=== PATIENT | male | born 1940 | race Caucasian/White ===

== ENCOUNTER 2021-12-18 06:19 | Day surgery (SDC) | payer OTHER ==
[~2021-12-18] VITALS: Ht 162.6 cm; Wt 72.7 kg
[~2021-12-18 06:19] MED LIST: ASPI81EC; CARV25; CARV6.25 PO; CEFP200 PO; CLIN300 PO; CLOP75; CLOP75 PO; CRUTCH3 USE; DIGO.25 PO; DUTA.5 PO; ENTRESTO 24 MG1 EAC3 PO; EZET10 PO; EZETIMIBE10 M6 PO; FINA5 PO; FURO100EL PO; FURO40 PO; HYDACE25S PR; HYDACE5 PO; IPRATROPIUM BRO30 ML; JANTOVEN5 M2 PO; LISI20 PO; Lisinopril2.5 MG PO; Nitrostat0.3 MG SL; POTCHL20ER PO; PROCODE120 PO; RANO500T PO; RANOLAZINE ER500 M2 PO; RXPROCODSY PO; SIMV40 PO; SOTO80 PO; SPIR25 PO; Simvastatin40 MG PO; TAMS.4ER PO; TORSE20 PO; TRAM50 PO; VYTORIN; WARF4; WARF5 PO; [UNRECOGNIZED DRUG - REMARK]; [UNRECOGNIZED DRUG - REMARK]; [UNRECOGNIZED DRUG - REMARK]
--- NOTE | 2021-12-18 09:15 | NUR ---
[facility] returned to [facility]. awake and responds appropriately. dressing over left upper chest device site D&I. no hematoma, no bleeding.
--- NOTE | 2021-12-18 09:39 | NUR ---
PT GIVEN DIET PEPSI PER REQUEST. PT SITTING UP IN BED. PT A&Ox4. FAMILY AT BEDSIDE.
--- NOTE | 2021-12-18 10:15 | NUR ---
CLINDOMYCINE 600MG IVPB STARTED.
--- NOTE | 2021-12-18 11:00 | NUR ---
PATIENT VERBALIZED UNDERSTANDING OF DISCHARGE INSTRUCTIONS AND PRECAUTIONS. QUESTIONS ANSWERED. DEVICE SITE WITHOUT HEMATOMA OR BLEEDING DRESSING D&I. IV SITE DCED WITH CATHETER INTACT. TRANSFERRED TO CAR VIA WHEEL CHAIR BY DEMETRIO PRESSLEY.
== END 2021-12-18 14:12 | disposition home or self-care (01) ==
LOC: MHTC 06:19
DX: Z45.02 Encounter for adjustment and management of automatic implantable cardiac defibrillator (principal); I25.5 Ischemic cardiomyopathy; I48.20 Chronic atrial fibrillation, unspecified; I25.10 Atherosclerotic heart disease of native coronary artery without angina pectoris; E78.5 Hyperlipidemia, unspecified; I11.0 Hypertensive heart disease with heart failure; I50.9 Heart failure, unspecified; I25.2 Old myocardial infarction; E11.9 Type 2 diabetes mellitus without complications; Z79.01 Long term (current) use of anticoagulants; Z95.5 Presence of coronary angioplasty implant and graft; Z88.1 Allergy status to other antibiotic agents; Z88.0 Allergy status to penicillin
CPT/HCPCS: 33264; 99152; 99153; C1781; C1882; J0690; J1644; J2250; J2370; J3010; J3370; J7030; J7040

== ENCOUNTER 2022-12-30 13:21 | Day surgery (SDC) | payer OTHER ==
[~2022-12-30] VITALS: Ht 162.6 cm; Wt 72.3 kg
[2022-12-30 15:26] VITALS: BP 92/63
== END 2022-12-30 15:24 | disposition home or self-care (01) ==
LOC: ORSCSDS 13:21
PROVIDERS: Internal Medicine Gastroenterology
PROC: 0DJ08ZZ Inspection of Upper Intestinal Tract, Via Natural or Artificial Opening Endoscopic (ICD-10-PCS; principal; 2022-12-30 14:45)
DX: R13.10 Dysphagia, unspecified (principal); K22.70 Barrett's esophagus without dysplasia; I42.9 Cardiomyopathy, unspecified; K22.2 Esophageal obstruction; K22.89 Other specified disease of esophagus; E11.22 Type 2 diabetes mellitus with diabetic chronic kidney disease; I25.2 Old myocardial infarction; I12.9 Hypertensive chronic kidney disease with stage 1 through stage 4 chronic kidney disease, or unspecified chronic kidney disease; N18.30 Chronic kidney disease, stage 3 unspecified; E78.5 Hyperlipidemia, unspecified; I48.91 Unspecified atrial fibrillation; I25.10 Atherosclerotic heart disease of native coronary artery without angina pectoris; K21.9 Gastro-esophageal reflux disease without esophagitis; Z95.0 Presence of cardiac pacemaker; Z87.891 Personal history of nicotine dependence; Z79.01 Long term (current) use of anticoagulants; Z79.899 Other long term (current) drug therapy
CPT/HCPCS: 82947; 88305; J2001; J2704; J7120

== ENCOUNTER 2023-01-15 22:44 | Emergency (ER) | payer OTHER ==
[~2023-01-15] VITALS: Ht 175.3 cm; Wt 72.6 kg
[2023-01-15 23:05] LABS: Calcium, Ionized (POC) 1.09 mmol/L (1.10-1.46); Chloride (POC) 105 mmol/L (98-108); Glucose (ISTAT POC) 185 mg/dL (70-99); Hemoglobin (POC) 11.9 g/dL (13.5-17.5); Potassium (POC) 4.6 mmol/L (3.5-5.5); Sodium (POC) 141 mmol/L (135-148); Total CO2 (POC) 24 mmol/L (21-32)
[2023-01-15 23:07] LABS: Hematocrit 36.1 % (37.0-53.0); Hemoglobin 11.6 g/dL (13.5-17.5); Mean Corpuscular HGB Conc 32.1 g/dL (31.5-36.5); Mean Corpuscular Volume 103 fL (80-100); Mean Platelet Volume 9.7 fL (9.1-12.4); NRBC ABSOLUTE 0.02 K/mm3 (0.00-0.02); NRBC Auto 0.1 /100 WBC (0.0-0.2); Platelet Count 146 K/mm3 (150-400); RDW Coefficient Variation 12.8 % (11.7-14.2); RDW Standard Deviation 48.3 fL (35.1-46.3); Red Blood Cell Count 3.52 M/mm3 (4.30-5.90)
[2023-01-15 23:15] VITALS: BP 159/108
[2023-01-15 23:21] LABS: PCO2 Arterial 31.6 mmHg (35-45); PO2 Arterial 472 mmHg (80-100); pH Blood Arterial 7.58 (7.35-7.45)
[2023-01-15 23:24] LABS: Albumin, Blood 2.9 g/dL (3.4-5.0); Albumin/Globulin Ratio 1.2 (0.8-1.8); Bilirubin, Total 0.4 mg/dL (0.1-1.0); Bun/Creatinine Ratio 16.7 (12.0-20.0); Calcium, Blood 7.5 mg/dL (8.5-10.1); Creatinine, Blood 1.86 mg/dL (0.60-1.20); Globulin, Blood 2.5 g/dL (2.2-4.0); Potassium, Blood 4.7 mmol/L (3.5-5.5); Total Protein, Blood 5.4 g/dL (6.4-8.2)
[2023-01-15 23:31] LABS: BAND PERCENT MAN 18 % (0-8); BASOPHILS PERCENT MAN 0 % (0-2); EOSINOPHILS ABSOLUTE MAN 0.19 K/mm3 (0.00-0.68); EOSINOPHILS PERCENT MAN 1 % (0-6); LYMPHOCYTES ABSOLUTE MAN 3.78 K/mm3 (0.84-5.20); LYMPHOCYTES PERCENT MAN 19 % (21-46); METAMYELOCYTE ABSOLUTE MAN 0.39 K/mm3 (0.00-0.00); METAMYELOCYTE PERCENT MAN 2 % (0-0); MONOCYTES ABSOLUTE MAN 0.79 K/mm3 (0.16-1.47); MONOCYTES PERCENT MAN 4 % (4-13); NEUTROPHILS ABSOLUTE MAN 14.72 K/mm3 (1.96-9.15); SEG NEUTROPHILS PERCENT MAN 56 % (41-73); TOTAL CELLS COUNTED 100
== END 2023-01-16 02:37 ==
LOC: EDBD 22:44 → ER 22:44
PROVIDERS: Emergency Medicine
DX: I46.9 Cardiac arrest, cause unspecified (principal); J93.9 Pneumothorax, unspecified; E87.20 Acidosis, unspecified; I25.2 Old myocardial infarction; E11.9 Type 2 diabetes mellitus without complications
CPT/HCPCS: 36600; 51702; 71045; 80047; 80053; 82803; 83605; 84484; 85014; 85025; 92950; 93005; 93010; 94002; 99291-25; J0171; J7060